=== PATIENT | male | born 1975 | race Two or more races ===

== ENCOUNTER 2023-01-12 06:50 | Emergency (ER) | payer MEDICAID, OTHER ==
[~2023-01-12] VITALS: Ht 175.3 cm; Wt 59.7 kg
[2023-01-12 07:35] VITALS: PULSE 147; RESP 43; O2SAT 90
[2023-01-12] MEDS ORDERED: KETAMINE 50mg/ML 10ml Vial (500mg/10ml) IV ONE (07:45)
[2023-01-12] MEDS ORDERED: fentaNYL CITRATE 100 MCG/2 ML VL IV ONE ×6 (07:45→15:30)
[2023-01-12] MEDS ORDERED: SODIUM CHLORIDE 0.9% 1,000 ML IV ONE ×2 (07:45→14:30)
[2023-01-12] MEDS ORDERED: LORazepam 2MG/ML-1ML VIAL IV ONE (08:15)
[2023-01-12] MEDS ORDERED: ONDANSETRON HCL 4 MG/2 ML VIAL IV ONE ×2 (08:15→15:30)
[2023-01-12] MEDS ORDERED: SODIUM CHLORIDE 0.9% 1,000 ML IVB ONE (08:15)
[2023-01-12 09:30] LABS: Hemoglobin 7.5 g/dL (13.5-17.5)
[2023-01-12 09:31] LABS: Hematocrit 23.4 % (41.0-53.0); Mean Corpuscular Hemoglobin 25.5 pg (28.0-32.0); Mean Corpuscular Hgb Conc. 32.1 g/dL (32.0-36.0); Mean Corpuscular Volume 79.7 fL (80.0-100.0); Red Blood Cells 2.94 10^6/uL (4.5-5.90); Red Cell Distribution Width 14.5 % (11.8-14.3); White Blood Cell 20.3 10^3/uL (4.4-10.8)
[2023-01-12 09:44] LABS: Basophils % (manual) 0 (0.0-2.0); Blast Cells 0; Eosinophils % (manual) 0 (0-7); Metamyelocytes % 0; Myelocytes % 0; Promyelocytes % 0; Reactive Lymphocytes 0
[2023-01-12 09:54] LABS: INR 1.42 (0.9-1.15); Partial Thromboplastin Time 30.3 SEC (24.5-34.5); Prothrombin Time 14.6 sec (9.3-11.8)
[2023-01-12 10:06] LABS: Urine Bacteria FEW /hpf (None Seen); Urine Blood TRACE /uL (Negative); Urine Clarity Clear (Clear); Urine Color Yellow (Yellow); Urine Protein, UAD TRACE (Negative); Urine Specific Gravity 1.028 (1.001-1.035); Urine Urobilinogen Normal (Negative); Urine WBC 3 /hpf (0 - 3); Urine pH 5.5 (5.0-8.0)
[2023-01-12 10:47] LABS: Band Neutrophils % (manual) 15; Lymphocytes % (manual) 6 (10.0-50.0); Monocytes % (manual) 5 (0-12)
[2023-01-12 10:48] LABS: Anisocytosis Slight; Platelet Estimate Increased; Tear Drop Cells FEW
[2023-01-12 11:00] LABS: Alanine Aminotransferase 143 U/L (7-40); Albumin 3.5 g/dL (3.2-4.8); Alkaline Phosphatase 193 U/L (46-116); Anion Gap 10 (5-15); Aspartate Aminotransferase 129 U/L (13-40); BUN/Creatinine Ratio 22.7 (10.0-20.0); Bilirubin, Total < 0.2 mg/dL (0.2-1.0); Blood Urea Nitrogen 17 mg/dL (9-23); Calcium 8.2 mg/dL (8.5-10.1); Carbon Dioxide 19 mmol/L (20-30); Chloride 104 mmol/L (98-107); Glucose 108 mg/dL (74-106); Potassium 3.3 mmol/L (3.5-5.1); Sodium 133 mmol/L (136-145); Total Protein 8.9 g/dL (5.7-8.2)
[2023-01-12 12:34] LABS: COVID19 ANTIGEN SOFIA FIA NEGATIVE (NEGATIVE)
[2023-01-12] MEDS ORDERED: VANCOMYCIN 1GM/250ML 250 ML IV ONE (14:15)
[2023-01-12] MEDS ORDERED: ACETAMINOPHEN 500 MG TAB PO ONE (14:15)
[2023-01-12] MEDS ORDERED: PIPERACILLIN-TAZOB 3.375GM 100 ML IV ONE (14:15)
[2023-01-12 15:15] VITALS: TEMP 101.6; O2SAT 100
[2023-01-12] MEDS ORDERED: ONDANSETRON HCL 4 MG/2 ML VIAL ONE (15:31)
[2023-01-12 15:38] VITALS: BP 102/66; PULSE 118; RESP 34
== END 2023-01-12 15:42 | disposition short-term general hospital (02) ==
LOC: ER 06:50
DX: R06.02 Shortness of breath (principal); R07.89 Other chest pain; I10 Essential (primary) hypertension; Z20.822 Contact with and (suspected) exposure to COVID-19
CPT/HCPCS: 36415; 36600; 71045; 71275; 80053; 81001; 82805; 84484; 85007; 85027; 85610; 85730; 87426; 93005; 93306; 96361; 96365; 96375; 96376; 99285; J2060; J2405; J3010; J3370; J7030; Q9967; J2543

== ENCOUNTER 2023-06-21 14:06 | Emergency (ER) | payer OTHER ==
[~2023-06-21] VITALS: Ht 177.8 cm; Wt 81.8 kg
[2023-06-21] MEDS: LORazepam 2MG/ML-1ML VIAL IV ONE (14:20)
[2023-06-21 14:36] VITALS: PULSE 125; RESP 12; O2SAT 92
[2023-06-21] MEDS: LORazepam 2MG/ML-1ML VIAL ONE (14:36)
[2023-06-21] MEDS: diphenhdrAMINE HCL 50 MG/1 ML VL IV ONE (14:42)
[2023-06-21] MEDS: levETIRAcetam 1000 mg/100ml 100 ML IV ONE (15:26)
[2023-06-21] MEDS: NALOXONE HCL 1MG/ML 2ML SYRINGE ONE (15:27)
[2023-06-21] MEDS: NALOXONE HCL 1MG/ML 2ML SYRINGE IV ONE (15:27)
[2023-06-21 16:07] LABS: Albumin 4.4 g/dL (3.2-4.8); Alkaline Phosphatase 139 U/L (46-116); Anion Gap 15 (5-15); Aspartate Aminotransferase 52 U/L (13-40); Bilirubin, Total 0.6 mg/dL (0.2-1.0); Calcium 9.5 mg/dL (8.7-10.4); Carbon Dioxide 13 mmol/L (20-30); Chloride 108 mmol/L (98-107); Glucose 148 mg/dL (74-106); Sodium 136 mmol/L (136-145); Total Protein 8.1 g/dL (5.7-8.2)
[2023-06-21 16:30] LABS: Alanine Aminotransferase 25 U/L (7-40); BUN/Creatinine Ratio 4.7 (10.0-20.0); Blood Urea Nitrogen 5 mg/dL (9-23); Lipase 46 U/L (12-53); Potassium 5.4 mmol/L (3.5-5.1)
[2023-06-21 17:00] LABS: Basophils # (auto) 0 10 ^3/uL (0-0.2); Basophils % (auto) 0.2 % (0.0-2.0); Eosinophils # (auto) 0 10 ^3/uL (0-0.8); Hematocrit 46.2 % (41.0-53.0); Hemoglobin 14.8 g/dL (13.5-17.5); Lymphocytes # (auto) 0.5 10 ^3/uL (0.4-5.4); Lymphocytes % (auto) 3.1 % (10.0-50.0); Mean Corpuscular Hemoglobin 27.1 pg (28.0-32.0); Mean Corpuscular Hgb Conc. 32.1 g/dL (32.0-36.0); Mean Corpuscular Volume 84.3 fL (80.0-100.0); Monocytes # (auto) 0.8 10 ^3/uL (0-1.3); Monocytes % (auto) 4.8 % (0.0-12.0); Neutrophils # (auto) 15.9 10 ^3/uL (1.6-8.6); Neutrophils % (auto) 91.9 % (37.0-80.0); Nucleated Red Blood Cells % 0.1 %; Red Blood Cells 5.49 10^6/uL (4.5-5.90); Red Cell Distribution Width 16.2 % (11.8-14.3); White Blood Cell 17.4 10^3/uL (4.4-10.8)
[2023-06-21 17:26] LABS: Lactic Acid w/Reflex 3.4 mmol/L (0.4-2.0)
[2023-06-21] MEDS: SODIUM CHLORIDE 0.9% 1,000 ML IV ONE (18:30)
[2023-06-21 20:00] VITALS: TEMP 98.8
[2023-06-21] MEDS: AZITHROMYCIN 250 MG TAB PO ONE (21:24)
[2023-06-21] MEDS ORDERED: AZIT500T66 PO (21:24)
[2023-06-21] MEDS ORDERED: AMLO1TAB23 PO (21:24)
[2023-06-21] MEDS ORDERED: CLON0.2T PO (21:24)
[2023-06-21] MEDS ORDERED: LEVE500T40 PO (21:24)
[2023-06-21 21:38] VITALS: BP 141/104; PULSE 110; RESP 17; O2SAT 93
== END 2023-06-21 22:12 | disposition home or self-care (01) ==
LOC: EDBD 14:06 → ER 14:10
DX: R56.9 Unspecified convulsions (principal); J40 Bronchitis, not specified as acute or chronic; I10 Essential (primary) hypertension
CPT/HCPCS: 36415; 70450; 71045; 80053; 83605; 83690; 83880; 84484; 96361; 96374; 96375; 99285; J1200; J1953; J2060; J2310; J7030

== ENCOUNTER 2024-04-09 14:00 | Emergency (ER) | payer OTHER ==
[~2024-04-09] VITALS: Ht 175.3 cm; Wt 77.3 kg
[2024-04-09] MEDS: POTASSIUM CHL 20MEQ/100ML 100 ML IV SCH (00:30)
[~2024-04-09 14:00] MED LIST: AMLO1TAB23 PO; AZIT500T66 PO; CLON0.2T PO; LEVE500T40 PO
[2024-04-09] MEDS: PHENYTOIN SODIUM 100 MG CAP PO ONE (14:30)
[2024-04-09] MEDS ORDERED: LABETALOL HCL 20 MG/4 ML VL IV ONE (14:30)
[2024-04-09] MEDS: levETIRAcetam 1000 mg/100ml 100 ML IV ONE (14:45)
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
[2024-04-09] MEDS: LORazepam 2MG/ML-1ML VIAL IV ONE (15:15)
[2024-04-09 15:52] LABS: Alanine Aminotransferase 14 U/L (7-40); Alkaline Phosphatase 94 U/L (46-116); Anion Gap 8 (5-15); BUN/Creatinine Ratio 8.4 (10.0-20.0); Carbon Dioxide 25 mmol/L (20-31); Chloride 104 mmol/L (98-107); Glucose 88 mg/dL (74-106); Sodium 137 mmol/L (136-145)
[2024-04-09 15:53] LABS: Albumin 4.6 g/dL (3.2-4.8); Aspartate Aminotransferase 26 U/L (13-40)
[2024-04-09 15:54] LABS: Total Protein 7.5 g/dL (5.7-8.2)
[2024-04-09 15:55] LABS: Bilirubin, Total 1.4 mg/dL (0.2-1.0); Blood Urea Nitrogen 8 mg/dL (9-23); Potassium 3.3 mmol/L (3.5-5.1)
[2024-04-09 16:15] LABS: Basophils # (auto) 0.1 10 ^3/uL (0-0.2); Basophils % (auto) 0.8 % (0.0-2.0); Eosinophils # (auto) 0.1 10 ^3/uL (0-0.8); Monocytes # (auto) 0.5 10 ^3/uL (0-1.3); White Blood Cell 6.9 10^3/uL (4.4-10.8)
[2024-04-09] MEDS: ACETAMINOPHEN 325 MG TAB PO ONE (16:15)
[2024-04-09 16:17] LABS: Hematocrit 43.6 % (41.0-53.0); Hemoglobin 14.3 g/dL (13.5-17.5); Lymphocytes # (auto) 2.2 10 ^3/uL (0.4-5.4); Lymphocytes % (auto) 31.4 % (10.0-50.0); Mean Corpuscular Hemoglobin 26.4 pg (28.0-32.0); Mean Corpuscular Hgb Conc. 32.9 g/dL (32.0-36.0); Mean Corpuscular Volume 80.3 fL (80.0-100.0); Monocytes % (auto) 7.7 % (0.0-12.0); Neutrophils # (auto) 4.1 10 ^3/uL (1.6-8.6); Neutrophils % (auto) 59.1 % (37.0-80.0); Platelet Count (auto) 327 10^3/uL (140-450); Red Blood Cells 5.43 10^6/uL (4.5-5.90); Red Cell Distribution Width 16.4 % (11.8-14.3)
[2024-04-09 17:00] VITALS: PULSE 117; RESP 18; O2SAT 96
[2024-04-09 17:09] LABS: Cannabinoid Screen, Urine Pos (NEGATIVE)
[2024-04-09 17:13] LABS: Amphetamine Screen, Urine Pos (NEGATIVE); Barbiturate Scree,Urine Neg (NEGATIVE); Benzodiazephine Screen, Urine Neg (NEGATIVE); Cocaine Screen, Urine Neg (NEGATIVE); Opiate Scree,Urine Neg (NEGATIVE); Phencyclidine Screen, Urine Neg (NEGATIVE)
[2024-04-09] MEDS: cloNIDine 0.1 mg/24hr 7 DAY PATCH TD ONE (17:52)
[2024-04-09] MEDS: NITROGLYCERIN 50MG/250ML 250 ML IV ONE (17:52)
[2024-04-09 19:20] VITALS: O2SAT 96
[2024-04-09] MEDS: SODIUM CHLORIDE 0.9% 1,000 ML IV ONE (20:15)
[2024-04-09] MEDS: LABETALOL HCL 20 MG/4 ML VL IV ONE (21:45)
[2024-04-09 22:00] VITALS: PULSE 110; RESP 14; O2SAT 95
[2024-04-09] MEDS: amLODIPine BESYLATE 5 MG TAB PO ONE (23:15)
[2024-04-10] MEDS ORDERED: AMLO1TAB23 PO (02:08)
[2024-04-10] MEDS ORDERED: PHEN1CAP38 PO (02:08)
[2024-04-10] MEDS ORDERED: CLON0.2T PO (02:08)
[2024-04-10] MEDS: MORPHINE SULFATE INJ 2 MG/ml SYRG IV ONE (02:15)
[2024-04-10 03:00] VITALS: BP 102/66; PULSE 99; RESP 20; O2SAT 99
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
== END 2024-04-10 03:28 | disposition home or self-care (01) ==
LOC: ER 14:00
DX: G40.909 Epilepsy, unspecified, not intractable, without status epilepticus (principal); I16.1 Hypertensive emergency; F19.10 Other psychoactive substance abuse, uncomplicated; I10 Essential (primary) hypertension; F12.90 Cannabis use, unspecified, uncomplicated; F15.90 Other stimulant use, unspecified, uncomplicated; Z98.890 Other specified postprocedural states; Z79.899 Other long term (current) drug therapy
CPT/HCPCS: 36415; 80053; 80307; 82947; 84484; 85025; 96365; 96366; 96368; 96375; 99291; J1953; J2060; J2270; J3480; 82962

== ENCOUNTER 2024-07-21 08:17 | Emergency (ER) | payer OTHER ==
[~2024-07-21] VITALS: Ht 175.3 cm; Wt 82.0 kg
[~2024-07-21 08:17] MED LIST changes: +PHEN1CAP38 PO
--- NOTE | 2024-07-21 08:49 | ED.PDOC ---
HPI (NEURO) HPI Comments 48 y/o M with PMHx of HTN and seizures, BIBA, presents to the ED for CC of s/p seizure. EMS reports, patient is coming from home, where he had a witnessed 2min seizure by his while laying down in bed. Upon arrival to scene, patient was found to be postictal. Patient reports, his last seizure to have been [id number] prior. Patient endorses, having a recent increase in his Keppra dosage from 100mg bid to 1000mg bid. Patient denies oral trauma, incontinence, dizziness, nausea, or vomiting. No other symptoms or modifying factors present at this time. Chief Complaint: Seizure Time Seen by MD: 08:30 Primary Care Provider: UNKNOWN Reviewed Notes: Nurses Notes, Asphalt Machine Operator Notes, Medications, Allergies Information Source: Patient, Emergency Med Personnel Mode of Arrival: EMS Severity: Moderate Headache Severity: None Timing: Minutes Duration: Minutes Prehospital treatment: None Seizure Quality: Single Episodes Onset: At rest Circumstances: Spontaneous Symptoms: None Before: Normal During: Awake After: Normal Mentation History of: Seizure Disorder Modifying factors: Nothing Associated Signs and Symptoms: None Past Medical History PAST MEDICAL HISTORY: HTN, Seizures Family History Family History: Reviewed,noncontributory to illness, No family hx of Cancer, No family hx of DM, No family hx of Heart jose, No family hx of HTN, No family hx ofKidney jose, No family hx of Liver jose, No family hx of Lung jose, No family hx of Stroke Social History Smoker: Non-Smoker Alcohol: Denies ETOH Use Drugs: Marijuana, Methamphetamine Lives In: Home Constitutional: denies: chills, diaphoresis, fatigue, fever, malaise, sweats, weakness, others EENTM: denies: blurred vision, double vision, ear bleeding, ear discharge, ear drainage, ear pain, ear ringing, eye pain, eye redness, hearing loss, mouth pain, mouth swelling, nasal discharge, nose bleeding, nose congestion, nose pain, photophobia, tearing, throat pain, throat swelling, voice changes, others Respiratory: denies: cough, hemoptysis, orthopnea, SOB at rest, shortness of breath, SOB with excertion, stridor, wheezing, others Cardiovascular: denies: chest pain, dizzy spells, diaphoresis, Dyspnea on exertion, edema, irregular heart beat, left arm pain, lightheadedness, palpitations, PND, syncope, others Gastrointestinal: denies: abdomen distended, abdominal pain, blood streaked bowels, constipated, diarrhea, dysphagia, difficulty swallowing, hematemesis, melena, nausea, poor appetite, poor fluid intake, rectal bleeding, rectal pain, vomiting, others Genitourinary: denies: burning, dysuria, flank pain, frequency, hematuria, incontinence, penile discharge, penile sore, pain, testicle pain, testicle swelling, urgency, others Neurological: reports: seizure; denies: dizziness, fainting, headache, left sided numbness, left sided weakness, numbness, paresthesia, pre-existing deficit, right sided numbness, right sided weakness, speech problems, tingling, tremors, weakness, others Musculoskeletal: denies: back pain, gout, joint pain, joint swelling, muscle pain, muscle stiffness, neck pain, others Integumetry: denies: bruises, change in color, change in hair/nails, dryness, laceration, lesions, lumps, rash, wounds, others Allergic/Immunocompromised: denies: Difficulty Healing, Frequent Infections, Hives, Itching, others Hematologic/Lymphatic: denies: anemia, blood clots, easy bleeding, easy bruising, swollen glands, others Endocrine: denies: excessive hunger, excessive sweating, excessive thirst, excessive urination, flushing, intolerance to cold, intolerance to heat, unexplained weight gain, unexplained weight loss, others Psychiatric: denies: anxiety, bipolar disorder, depression, hopeless, panic disorder, schizophrenia, sleepless, suicidal, others All Other Systems: Reviewed and Negative Physical Exam General Appearance: Moderate Distress HEENT: Normal ENT Inspection, Pharynx Normal, TMs Normal Neck: Full Range of Motion, Non-Tender, Normal, Normal Inspection Respiratory: Chest Non-Tender, Lungs Clear, No Accessory Muscle Use, No Res piratory Distress, Normal Breath Sounds Cardiovascular: No Edema, No JVD, No Murmur, No Gallop, Normal Peripheral Pulses, Regular Rate/Rhythm Breast Exam: Deferred Gastrointestinal: No Organomegaly, Non Tender, No Pulsatile Mass, Normal Bowel Sounds, Soft Genitalia: Deferred Pelvic: Deferred Rectal: Deferred Extremities: No calf tenderness, No pedal edema Musculoskeletal : Apperance: Normal Neurologic: Disoriented Cerebellar Function: NOT DONE Reflexes: NOT DONE Skin: Normal Color Peripheral Pulses: 3+ Radial (R), 3+ Radial (L) Lymphatic: No Adenopathy Was a procedure done? Was a procedure done?: No Differential Diagnosis (SZ) Seizure: Psychogenic Seizure, Closed Head Injury, CVA/TIA, Epilepsy-Break Through, Epilepsy-Status X-Ray, Labs, Meds, VS Vital Signs Date Time Temp Pulse Resp B/P (MAP) Pulse Ox O2 Delivery O2 Flow Rate FiO2 07/21/24 09:01 66 12 152/101 (118) 98 07/21/24 08:57 87 07/21/24 08:35 97.8 75 18 182/112 (135) 9 97.8 Lab Test 07/21/24 09:09 Range/Units White Blood Count 5.6 4.4-10.8 10^3/uL Red Blood Count 5.64 4.5-5.90 10^6/uL Hemoglobin 15.4 13.5-17.5 g/dL Hematocrit 47.9 41.0-53.0 % Mean Corpuscular Volume 85.0 80.0-100.0 fL Mean Corpuscular Hemoglobin 27.4 L 28.0-32.0 pg Mean Corpuscular Hemoglobin Concent 32.2 32.0-36.0 g/dL Red Cell Distribution Width 14.9 H 11.8-14.3 % Platelet Count 294 140-450 10^3/uL Mean Platelet Volume 7.1 6.9-10.8 fL Neutrophils (%) (Auto) 65.7 37.0-80.0 % Lymphocytes (%) (Auto) 25.5 10.0-50.0 % Monocytes (%) (Auto) 5.8 0.0-12.0 % Eosinophils (%) (Auto) 2.0 0.0-7.0 % Basophils (%) (Auto) 1.0 0.0-2.0 % Neutrophils # (Auto) 3.7 1.6-8.6 10 ^3/uL Lymphocytes # (Auto) 1.4 0.4-5.4 10 ^3/uL Monocytes # (Auto) 0.3 0-1.3 10 ^3/uL Eosinophils # (Auto) 0.1 0-0.8 10 ^3/uL Basophils # (Auto) 0.1 0-0.2 10 ^3/uL Nucleated Red Blood Cells 0.1 % Sodium Level 138 136-145 mmol/L Potassium Level 4.3 3.5-5.1 mmol/L Chloride Level 111 H 98-107 mmol/L Carbon Dioxide Level 21 20-31 mmol/L Anion Gap 6 5-15 Blood Urea Nitrogen 9 9-23 mg/dL Creatinine 1.00 0.700-1.30 mg/dL Glomerular Filtration Rate Calc 94 >90 mL/min BUN/Creatinine Ratio 9.0 L 10.0-20.0 Serum Glucose 84 74-106 mg/dL Calcium Level 9.6 8.7-10.4 mg/dL Patient slightly disoriented. Blood pressure elevated. History of seizure. Saturation pristine on room air. No sign of any injury. Continues to be confused. CT of the head was not done because no trauma was noticed. No new onset. He does use drugs. Reviewed his previous history. Continue monitor. Spoke with [facility] physician. He will be following the patient. Time of 1ST Reevaluation: 09:00 Reevaluation 1ST: Unchanged Patient Education/Counseling: Diagnosis, Treatment Family Education/Counseling: No Family Present Departure 1 Departure Time of Disposition: 09:25 Impression: Primary Impression: Metabolic encephalopathy Additional Impression: Hypertensive urgency Disposition: ADMITTED INPATIENT Admit to: Med Surg Condition: Guarded Critical Care Note Critical Care Time?: No Stability Stability form required: No Heart Score Heart Score: Heart Score Response (Comments) Value History N/A 0 EKG N/A 0 Age N/A 0 Risk Factors N/A 0 Troponin N/A 0 Total 0 I personally scribed for PILLO JOSEPH MD ([email or web address]) on 07/21/24 at 08:49. Electronically submitted by Sally Busby ([email or web address]). PILLO JOSEPH MD July 21, 2024 08:49
[2024-07-21 09:00] VITALS: PULSE 70; RESP 14; O2SAT 99
[2024-07-21 09:28] LABS: Basophils # (auto) 0.1 10 ^3/uL (0-0.2); Eosinophils # (auto) 0.1 10 ^3/uL (0-0.8); Hematocrit 47.9 % (41.0-53.0); Hemoglobin 15.4 g/dL (13.5-17.5); Lymphocytes # (auto) 1.4 10 ^3/uL (0.4-5.4); Lymphocytes % (auto) 25.5 % (10.0-50.0); Mean Corpuscular Hemoglobin 27.4 pg (28.0-32.0); Mean Corpuscular Hgb Conc. 32.2 g/dL (32.0-36.0); Monocytes # (auto) 0.3 10 ^3/uL (0-1.3); Monocytes % (auto) 5.8 % (0.0-12.0); Neutrophils # (auto) 3.7 10 ^3/uL (1.6-8.6); Neutrophils % (auto) 65.7 % (37.0-80.0); Nucleated Red Blood Cells % 0.1 %; Platelet Count (auto) 294 10^3/uL (140-450); Red Blood Cells 5.64 10^6/uL (4.5-5.90); Red Cell Distribution Width 14.9 % (11.8-14.3); White Blood Cell 5.6 10^3/uL (4.4-10.8)
[2024-07-21 09:35] LABS: Potassium 4.3 mmol/L (3.5-5.1); Sodium 138 mmol/L (136-145)
[2024-07-21 09:36] LABS: Anion Gap 6 (5-15); Calcium 9.6 mg/dL (8.7-10.4); Carbon Dioxide 21 mmol/L (20-31)
[2024-07-21 09:40] LABS: Chloride 111 mmol/L (98-107)
[2024-07-21 09:41] LABS: Blood Urea Nitrogen 9 mg/dL (9-23); Glucose 84 mg/dL (74-106)
--- NOTE | 2024-07-21 10:46 | DVHDS2 ---
New Physician D'charge PN Admitting Diagnosis Admitting Diagnosis seizure Discharge Diagnosis seizure Operations or Procedures none Reason(s) For Hospitalization Surgery Hospital Course 48 M who comes to ER for witnessed seizure at home. He has a hx of seizure disorder and takes keppra at home PO. On arrival to ER patient was awake and alert. He was loaded with keppra IV and CBC revealed to be normal and his electrolyte panel was also nml. He will resume his home regimen of keppra as his dosage was recently increased to 1000 mg po BID. [facility] to arrange for outpt neurology follow up. Spoke to ER provider and all parties in agreement with plan. Treatment Plan Discharge Condition of Discharge Good Disposition Home Discharge Instructions Diet: Cardiac 2g Na,low cholest Activity: No Restrictions, As Tolerated Medications: see med sheet Follow Up Care Discharge Statement: "Patient was advised to return to the ER or call 911 if any headaches, dizziness, shortness of breath, chest pain, abdominal pain, bleeding, fevers, or worsening of medical condition. Patient was counseled about treatment plan, medications, possible side effects, patientverbalized understanding. All questions were answered to the best of my ability. This discharge took greater then 30 minutes in planning, reviewing documentation, counseling the patient, and discussing with other team members." MOHINDER FRAZIER MD July 21, 2024 10:46
[2024-07-21] MEDS: levETIRAcetam 1000 mg/100ml 100 ML IV ONE (11:14)
[2024-07-21] MEDS: cloNIDine HCL 0.1 MG TAB PO ONE (13:06)
[2024-07-21 13:30] VITALS: BP 169/107; PULSE 88; RESP 13; TEMP 97.2; O2SAT 100
[2024-07-21] MEDS: amLODIPine BESYLATE 5 MG TAB PO ONE (14:07)
== END 2024-07-21 14:12 | disposition home or self-care (01) ==
LOC: EDBD 08:17 → ER 08:17
DX: G93.41 Metabolic encephalopathy (principal); I16.0 Hypertensive urgency
CPT/HCPCS: 36415; 80048; 82947; 85025; 96365; 99284; J1953

== ENCOUNTER 2024-09-08 23:44 | Emergency (ER) | payer OTHER ==
[~2024-09-08] VITALS: Ht 175.3 cm; Wt 75.0 kg
[2024-09-08 23:45] VITALS: BP 168/129; PULSE 125; RESP 15; TEMP 98.5; O2SAT 99
[2024-09-09] MEDS ORDERED: AUG875T PO (01:28)
--- NOTE | 2024-09-09 01:30 | ED.PDOC ---
HPI Comments PATIENT WAS CUTTING LIMBS OFF A TREE YESTERDAY AROUND 5PM, HIS KENNETH SLIPPED, CUTTING HIS LEFT HAND/WRIST. THERE IS AN APPROXIMATE 4CM OPEN LACERATION, BLEEDING IS CONTROLLED. PATIENT HAS PRE-EXISTING LEFT SIDED DEFICITS, STATES HIS SENSATION AND MOBILITY OF THE LEFT HAND ARE BASELINE. Chief Complaint: Laceration Time Seen by MD: 00:22 Primary Care Provider: UNKNOWN Reviewed Notes: Nurses Notes, Maternal Child Nurse Notes, Medications, Allergies Allergies: Coded Allergies: NO KNOWN ALLERGIES (Unverified , 01/12/23) Home Meds Active Scripts Phenytoin Sodium (DILANTIN CAPSULE) 100 Mg Cp, 100 MG PO BID for 90 Days, #180 CAP Prov:JESS BURCH MD 04/10/24 Clonidine Hydrochloride (Clonidine Hcl) 0.2 Mg Tab, 1 TAB PO BIDP PRN, #10 TAB 0 Refills To be used if systolic blood pressure is above 160 or diastolic pressures above 100. Prov:JESS BURCH MD 04/10/24 Amlodipine Besylate (Amlodipine Besylate) 10 Mg Tab, 1 TAB PO DAILY for 30 Days, #90 TAB 0 Refills Prov:JESS BURCH MD 04/10/24 Azithromycin (Azithromycin) 500 Mg Tab, 1 TAB PO DAILY for 4 Days, #4 TAB Prov:DANIEL REVELES PAC 06/21/23 Levetiracetam (Keppra) 500 Mg Tab, 1 TAB PO BID for 30 Days, #60 TAB 0 Refills Prov:DANIEL REVELES PAC 06/21/23 Information Source: Patient Mode of Arrival: EMS Complexity: Intermediate Laceration Length (cm): 3 Past Medical History PAST MEDICAL HISTORY: HTN, Seizures Surgical History: Denies all surgeries Family History Family History: Reviewed,noncontributory to illness, No family hx of Cancer, No family hx of DM, No family hx of Heart jose, No family hx of HTN, No family hx ofKidney jose, No family hx of Liver jose, No family hx of Lung jose, No family hx of Stroke Social History Smoker: Non-Smoker Alcohol: Denies ETOH Use Drugs: Marijuana, Methamphetamine Lives In: Home Constitutional: denies: chills, diaphoresis, fatigue, fever, malaise, sweats, weakness, others EENTM: denies: blurred vision, double vision, ear bleeding, ear discharge, ear drainage, ear pain, ear ringing, eye pain, eye redness, hearing loss, mouth pain, mouth swelling, nasal discharge, nose bleeding, nose congestion, nose pain, photophobia, tearing, throat pain, throat swelling, voice changes, others Respiratory: denies: cough, hemoptysis, orthopnea, SOB at rest, shortness of breath, SOB with excertion, stridor, wheezing, others Cardiovascular: denies: chest pain, dizzy spells, diaphoresis, Dyspnea on exertion, edema, irregular heart beat, left arm pain, lightheadedness, palpitations, PND, syncope, others Gastrointestinal: denies: abdomen distended, abdominal pain, blood streaked bowels, constipated, diarrhea, dysphagia, difficulty swallowing, hematemesis, melena, nausea, poor appetite, poor fluid intake, rectal bleeding, rectal pain, vomiting, others Genitourinary: denies: burning, dysuria, flank pain, frequency, hematuria, incontinence, penile discharge, penile sore, pain, testicle pain, testicle swelling, urgency, others Neurological: denies: dizziness, fainting, headache, left sided numbness, left sided weakness, numbness, paresthesia, pre-existing deficit, right sided numbness, right sided weakness, seizure, speech problems, tingling, tremors, weakness, others Musculoskeletal: denies: back pain, gout, joint pain, joint swelling, muscle pain, muscle stiffness, neck pain, others Integumetry: denies: bruises, change in color, change in hair/nails, dryness, laceration, lesions, lumps, rash, wounds, others Allergic/Immunocompromised: denies: Difficulty Healing, Frequent Infections, Hives, Itching, others Hematologic/Lymphatic: denies: anemia, blood clots, easy bleeding, easy bruising, swollen glands, others Endocrine: denies: excessive hunger, excessive sweating, excessive thirst, excessive urination, flushing, intolerance to cold, intolerance to heat, unexplained weight gain, unexplained weight loss, others Psychiatric: denies: anxiety, bipolar disorder, depression, hopeless, panic disorder, schizophrenia, sleepless, suicidal, others Physical Exam General Appearance: No Apparent Distress, Normal HEENT: Pharynx Normal Neck: Full Range of Motion, Non-Tender Respiratory: Lungs Clear, No Respiratory Distress, Normal Breath Sounds Cardiovascular: No Murmur, Normal Peripheral Pulses, Regular Rate/Rhythm Breast Exam: Deferred Gastrointestinal: Non Tender, Soft Genitalia: Deferred Pelvic: Deferred Rectal: Deferred Extremities: Normal capillary refill, Normal range of motion Musculoskeletal : Apperance: Normal Neurologic: Alert, No Motor Deficits, Normal Affect, Normal Mood, No Sensory Deficits Cerebellar Function: Normal Reflexes: Normal Skin: Dry, Lacerations (1.5 INCH FULL-THICKNESS LACERATION TO LEFT MEDIAL HAND BLEEDING CONTROLLED STRENGTH SENSORY MOTION INTACT. OBVIOUS FOREIGN BODY), Normal Color, Warm Lymphatic: No Adenopathy Was a procedure done? Was a procedure done?: Yes Sedation Sedation?: No Informed consent obtained: Yes Laceration Repair : Location LEFT MEDIAL HAND Length 1.5 IN Anesthetic: Lidocaine, With epi Laceration Repair Prep: Saline, by Irrigation Laceration Repair Wound Comple: epidermis/dermis repair Laceration Repair: Number of sutures (3), Simple, Non-adherent gauze, Gauze Informed consent obtained: Yes Risks, benefits, and alternati: Yes Notes PATIENT TOLERATED WELL MINIMAL BLOOD LOSS. ONE INTERNAL ABSORBABLE SUTURE USED. THREE LOOSE SUTURES TO ALLOW DRAINAGE GREATER THAN 1-DAY-OLD LACERATION. HEAVILY FLUSHED WITH NORMAL SALINE Differential diagnosis Generic Laceration: Retained Foriegn Body, Neurovascular Injury, Tendon Injury X-Ray, Labs, Meds, VS Vital Signs Date Time Temp Pulse Resp B/P (MAP) Pulse Ox O2 Delivery O2 Flow Rate FiO2 09/08/24 23:45 98.5 125 15 168/129 (142) 99 98.5 X-Ray, Labs, Meds, VS Comment SEE PROCEDURE NOTE. WE WILL START PATIENT ON PROPHYLACTIC ANTIBIOTICS SCRIPT TO PHARMACY ON FILE. PATIENT GIVEN ROCEPHIN IM. ADVISED TO TAKE MEDICATIONS P RESCRIBED SIDE EFFECTS DISCUSSED. ADVISED TO FOLLOW UP WITH HIS PCP URGENT CARE OR BACK HERE 2 DAYS FOR WOUND RE-EVALUATION. LOOSE SUTURES TO ENCOURAGE DRAINAGE WOUND DRESSED ADVISED TO MONITOR FOR SIGNS AND SYMPTOMS OF INFECTION AND UNCONTROLLED BLEEDING RETURN TO THE ER. PATIENT INDICATES UNDERSTANDING AND AGREES WITH DISCHARGE PLAN OF CARE Time of 1ST Reevaluation: 00:22 Reevaluation 1ST: Unchanged Time of 2ND Reevaluation: 01:27 Reevaluation 2ND: Improved Patient Education/Counseling: Diagnosis, Treatment, Prognosis, Need For Follow Up Family Education/Counseling: No Family Present Departure 1 Departure Time of Disposition: 01:27 Impression: Primary Impression: Laceration of hand without foreign body Qualified Codes: S61.412A - Laceration without foreign body of left hand, initial encounter Disposition: HOME / SELF CARE / HOMELESS Condition: Stable e-Prescriptions Amoxicillin & Pot Clavulanate (AUGMENTIN TABLET) 875 Mg Tb 875 MG PO BID for 7 Days, #14 TAB Prov: JOHN HORTA 09/09/24 Discharged With: Self Critical Care Note Critical Care Time?: No Stability Stability form required: JOHN Hale Sep 09, 2024 01:30
[2024-09-09] MEDS: cefTRIAXone SOD 1,000 MG VL IM ONE (01:41)
== END 2024-09-09 01:45 | disposition home or self-care (01) ==
LOC: EDBD 23:44 → ER 23:44
DX: S61.412A Laceration without foreign body of left hand, initial encounter (principal); F12.90 Cannabis use, unspecified, uncomplicated; F19.90 Other psychoactive substance use, unspecified, uncomplicated; I10 Essential (primary) hypertension; Z79.899 Other long term (current) drug therapy; W31.89XA Contact with other specified machinery, initial encounter; Y93.89 Activity, other specified; Y92.89 Other specified places as the place of occurrence of the external cause; Y99.8 Other external cause status
CPT/HCPCS: 12002; 96372; 99283; J0696; J2003